=== PATIENT | female | born 1950 | race Caucasian/White ===

== ENCOUNTER 2023-08-31 11:47 | Inpatient (IN) | payer OTHER ==
[2023-08-31] VITALS (21 sets, daily range): BP systolic 92–133; BP diastolic 47–121; TEMP 98.7; O2SAT 94–100
[~2023-08-31] VITALS: Ht 142.2 cm; Wt 95.3 kg
[2023-08-31] MEDS ORDERED: DILTIAZEM HCL 25 MG IV ONE (12:24)
[2023-08-31 12:27] LABS: BASOPHILS % (AUTO) 0.3 % (0.0-2.0); EOSINOPHILS % (AUTO) 0.1 % (0.0-6.0); HEMATOCRIT 34 % (33-45); HEMOGLOBIN 10.5 g/dL (11.5-14.8); LYMPHOCYTES # (AUTO) 0.6 K/uL (0.8-4.8); LYMPHOCYTES % (AUTO) 4.6 % (20.0-44.0); MEAN CORPUSCULAR HEMOGLOBIN 25 PG (26.0-33.0); MEAN CORPUSCULAR HGB CONC 31 g/dl (31.0-36.0); MEAN CORPUSCULAR VOLUME 80 fL (82-100); MONOCYTES # (AUTO) 0.3 K/uL (0.1-1.30); MONOCYTES % (AUTO) 2.1 % (2.0-12.0); NEUTROPHILS # (AUTO) 11.8 K/uL (1.8-8.9); NEUTROPHILS % (AUTO) 92.9 % (43.0-81.0); PLATELET COUNT (AUTO) 198 K/uL (150-450); RED BLOOD CELL COUNT(AUTO) 4.23 MIL/uL (4.0-5.2); RED CELL DISTRIBUTION WIDTH 30.1 % (11.5-15.0); WHITE BLOOD COUNT (AUTO) 12.7 K/uL (4.3-11.0)
[2023-08-31] MEDS: DILTIAZEM HCL 25 MG IV IVP ONE (12:35)
[2023-08-31] MEDS: IV NS 0.9% 500 ML BAG IV ONE (12:36)
[2023-08-31 12:41] LABS: INR 1.03 (0.91-1.10); PARTIAL THROMBOPLASTIN TIME 23.6 SEC (24.3-34.3); PROTHROMBIN TIME 10.9 SECS (9.2-11.1)
[2023-08-31 12:50] LABS: CALCIUM, SERUM 9.8 mg/dL (8.5-10.1); CARBON DIOXIDE 23 mmol/L (21-32); CHLORIDE 103 mmol/L (98-107); CREATININE 1.2 mg/dL (0.6-1.3); GLUCOSE 237 mg/dL (74-106); POTASSIUM 4.4 mmol/L (3.5-5.1); SODIUM SERUM 140 mmol/L (136-145); THYROID STIMULATING HORMONE 0.32 uIU/mL (0.358-3.74); UREA NITROGEN, BLOOD 22 mg/dL (7-18)
[2023-08-31] MEDS ORDERED: IV NS 0.9% 250 ML IV ONE (12:53)
[2023-08-31] MEDS ORDERED: IOHEXOL-300 100 ML VIAL IV ONE (12:53)
[2023-08-31 13:09] LABS: ALANINE AMINOTRANSFERASE 22 U/L (12-78); ALBUMIN 3.3 g/dL (3.4-5.0); ALKALINE PHOSPHATASE 100 U/L (46-116); ASPARTATE AMINOTRANSFERASE 16 U/L (15-37); BILIRUBIN,DIRECT 0.2 mg/dL (0.0-0.2); BILIRUBIN,TOTAL 0.8 mg/dL (0.2-1.0); TOTAL PROTEIN, SERUM 7.7 g/dL (6.4-8.2)
[2023-08-31] MEDS ORDERED: METF-442 PO (13:32)
[2023-08-31] MEDS: IV NS 0.9% 1,000 ML BAG IV ONE ×2 (13:32→14:00)
[2023-08-31] MEDS: VANCOMYCIN 1 GM in IV D5W 250 ML IV ONE (13:33)
[2023-08-31] MEDS: DILTIAZEM HCL IV 125 MG in IV D5W 100 ML IV ONE (13:33)
[2023-08-31] MEDS ORDERED: LISI-768 PO (13:33)
[2023-08-31] MEDS ORDERED: TURM500C9 PO (13:33)
[2023-08-31] MEDS ORDERED: CHOL400C8 PO (13:33)
[2023-08-31] MEDS ORDERED: PIOG15TA8 PO (13:33)
[2023-08-31] MEDS ORDERED: GLIP5TAB13 PO (13:33)
[2023-08-31] MEDS ORDERED: ACETAMINOPHEN 325 MG TABLET ONE (15:15)
[2023-08-31] MEDS: ACETAMINOPHEN 325 MG TABLET PO ONE (15:18)
[2023-08-31 15:38] LABS: APPEARANCE,URINE CLEAR (CLEAR); BILIRUBIN,URINE NEGATIVE (NEGATIVE); BLOOD, URINE TRACE-INTA Ery/uL (NEGATIVE); COLOR,URINE YELLOW (YELLOW); KETONES,URINE NEGATIVE (NEGATIVE); LEUKOCYTE ESTERASE ,URINE 2+ (NEGATIVE); NITRITE, URINE POSITIVE (NEGATIVE); PROTEIN,URINE NEGATIVE (NEGATIVE); UGLUCOSE NEGATIVE (NEGATIVE); UROBILINOGEN,URINE 0.2 EU/dL (0.2)
[2023-08-31 16:01] LABS: ADD URINE CULTURE YES; BACTERIA,URINE Few /HPF (None Seen); RBC,URINE 5 /HPF (0-2); SQUAMOUS EPITHELIAL CELL,UR Few /HPF (None Seen); WBC,URINE TOO NUMEROUS TO COUN /HPF (0-3)
[2023-08-31] MEDS: CEFEPIME 1 GM in IV D5W 50 ML IV ONE (16:53)
[2023-08-31] MEDS ORDERED: MAGNESIUM HYDROXIDE 30 ML UDC PO PRN (18:30)
[2023-08-31] MEDS ORDERED: MAG HYDROX/AL HYDROX/SIMETH 30 ML UDC PO PRN (18:30)
[2023-08-31] MEDS ORDERED: Z GUARD REMEDY 4 OZ OINT TP PRN (18:30)
[2023-08-31] MEDS ORDERED: ZOLPIDEM TARTRATE 5 MG TABLET PO PRN (18:30)
[2023-08-31] MEDS: DILTIAZEM HCL IV 125 MG in IV NS 0.9% 100 ML IV PRN (18:38)
[2023-08-31] MEDS ORDERED: DEXTROSE 50%-WATER 50 ML DISP.SYRIN IV PRN (19:00)
[2023-08-31] MEDS: IV 1/2NS 1000 ML 1,000 ML IV ONE (19:02)
[2023-08-31] MEDS: VANCOMYCIN 500 MG in IV D5W 100ml IV ONE (19:12)
[2023-08-31] MEDS: ENOXAPARIN SODIUM 100 MG/ML DISP.SYRIN SQ SCH (19:14)
[2023-08-31] MEDS ORDERED: ENOXAPARIN SODIUM 30 MG/0.3 ML DISP.SYRIN SQ SCH (21:00)
[2023-08-31] MEDS: BLOOD SUGAR DIAGNOSTIC 1 EACH STRIP VI SCH (21:27)
[2023-08-31] MEDS: *INSULIN REGULAR(HUMULIN R)HUM 100 UNIT/ML VIAL SQ PRN (21:29)
[2023-08-31] MEDS: ONDANSETRON HCL/PF 4 MG/2 ML VIAL IVP PRN (21:37)
[2023-09-01] VITALS (55 sets, daily range): BP systolic 86–120; BP diastolic 35–76; TEMP 98.3–101.2; O2SAT 94–100
[2023-09-01] MEDS: ACETAMINOPHEN 325 MG TABLET PO PRN (00:35)
[2023-09-01 04:21] LABS: BASOPHILS % (AUTO) 0.2 % (0.0-2.0); EOSINOPHILS % (AUTO) 0.1 % (0.0-6.0); HEMATOCRIT 29 % (33-45); LYMPHOCYTES # (AUTO) 1.2 K/uL (0.8-4.8); LYMPHOCYTES % (AUTO) 8.9 % (20.0-44.0); MEAN CORPUSCULAR HEMOGLOBIN 26 PG (26.0-33.0); MEAN CORPUSCULAR HGB CONC 32 g/dl (31.0-36.0); MEAN CORPUSCULAR VOLUME 81 fL (82-100); MONOCYTES # (AUTO) 0.9 K/uL (0.1-1.30); NEUTROPHILS # (AUTO) 10.9 K/uL (1.8-8.9); NEUTROPHILS % (AUTO) 83.8 % (43.0-81.0); PLATELET COUNT (AUTO) 156 K/uL (150-450); RED BLOOD CELL COUNT(AUTO) 3.53 MIL/uL (4.0-5.2); RED CELL DISTRIBUTION WIDTH 30.7 % (11.5-15.0)
[2023-09-01 04:43] LABS: CALCIUM, SERUM 8.6 mg/dL (8.5-10.1); CARBON DIOXIDE 24 mmol/L (21-32); CHLORIDE 106 mmol/L (98-107); CREATININE 0.9 mg/dL (0.6-1.3); GLUCOSE 189 mg/dL (74-106); MAGNESIUM 1.7 mg/dL (1.8-2.4); PHOSPHORUS 3.3 mg/dL (2.5-4.9); SODIUM SERUM 138 mmol/L (136-145); UREA NITROGEN, BLOOD 13 mg/dL (7-18)
[2023-09-01 04:56] LABS: CHOLESTEROL 126 mg/dL (<200); HDL CHOLESTEROL 57 mg/dL (40-60); LDL 57 mg/dL (0-99); TRIGLYCERIDES 91 mg/dL (30-150)
[2023-09-01] MEDS: PANTOPRAZOLE 40 MG TABLET.DR PO SCH (08:16)
[2023-09-01] MEDS: PIOGLITAZONE HCL 15 MG TABLET PO SCH (08:17)
[2023-09-01] MEDS: INSULIN REGULAR, HUMAN 100 UNIT/ML 3 ML VIAL SQ PRN (08:18)
[2023-09-01] MEDS: MAGNESIUM OXIDE 400 MG TABLET PO ONE (08:44)
[2023-09-01] MEDS: LISINOPRIL (5MG) 5 MG TABLET PO SCH (08:44)
[2023-09-01] MEDS: DILTIAZEM HCL 30 MG TABLET PO SCH (12:00)
[2023-09-01] MEDS: CEFEPIME 1 GM in IV D5W 50 ML IV SCH (15:31)
[2023-09-01] MEDS: VANCOMYCIN HCL 1.25 GM in IV D5W 250 ML IV SCH (19:50)
[2023-09-01] MEDS: METOPROLOL TARTRATE 25 MG TABLET PO SCH (20:21)
[2023-09-01 20:24] LABS: LACTIC ACID 2.7 mmol/L (0.4-2.0)
[2023-09-02] VITALS (8 sets, daily range): BP systolic 97–125; BP diastolic 53–71; TEMP 97.8–98.4; O2SAT 92–100
[2023-09-02 06:40] LABS: BASOPHILS % (AUTO) 0.2 % (0.0-2.0); EOSINOPHILS # (AUTO) 0.1 K/uL (0.0-0.7); EOSINOPHILS % (AUTO) 1.6 % (0.0-6.0); HEMATOCRIT 29 % (33-45); HEMOGLOBIN 9.3 g/dL (11.5-14.8); LYMPHOCYTES # (AUTO) 1.5 K/uL (0.8-4.8); MEAN CORPUSCULAR HEMOGLOBIN 26 PG (26.0-33.0); MEAN CORPUSCULAR HGB CONC 33 g/dl (31.0-36.0); MEAN CORPUSCULAR VOLUME 80 fL (82-100); MONOCYTES # (AUTO) 0.7 K/uL (0.1-1.30); MONOCYTES % (AUTO) 9.9 % (2.0-12.0); NEUTROPHILS # (AUTO) 5.1 K/uL (1.8-8.9); NEUTROPHILS % (AUTO) 68.3 % (43.0-81.0); PLATELET COUNT (AUTO) 138 K/uL (150-450); RED BLOOD CELL COUNT(AUTO) 3.54 MIL/uL (4.0-5.2); RED CELL DISTRIBUTION WIDTH 29.8 % (11.5-15.0); WHITE BLOOD COUNT (AUTO) 7.5 K/uL (4.3-11.0)
[2023-09-02 06:43] LABS: CALCIUM, SERUM 8.5 mg/dL (8.5-10.1); CREATININE 0.8 mg/dL (0.6-1.3); MAGNESIUM 1.7 mg/dL (1.8-2.4); POTASSIUM 4.1 mmol/L (3.5-5.1)
[2023-09-02] MEDS: MAGNESIUM OXIDE 400 MG TABLET PO ONE (08:45)
[2023-09-02] MEDS: CEFEPIME 2 GM in IV D5W 100 ML IV SCH (11:41)
[2023-09-02] MEDS: RIVAROXABAN 15 MG TABLET PO SCH (17:04)
[2023-09-02] MEDS ORDERED: VANCOMYCIN 1.5 GM in IV D5W 500 ML IV SCH (20:00)
[2023-09-03] VITALS (8 sets, daily range): BP systolic 106–116; BP diastolic 62–85; TEMP 97.7–98.6; O2SAT 96–98
[2023-09-03 07:44] LABS: BASOPHILS % (AUTO) 0.3 % (0.0-2.0); EOSINOPHILS # (AUTO) 0.1 K/uL (0.0-0.7); EOSINOPHILS % (AUTO) 1.6 % (0.0-6.0); HEMATOCRIT 30 % (33-45); HEMOGLOBIN 9.6 g/dL (11.5-14.8); LYMPHOCYTES # (AUTO) 1.8 K/uL (0.8-4.8); LYMPHOCYTES % (AUTO) 22.5 % (20.0-44.0); MEAN CORPUSCULAR HEMOGLOBIN 26 PG (26.0-33.0); MEAN CORPUSCULAR HGB CONC 32 g/dl (31.0-36.0); MEAN CORPUSCULAR VOLUME 80 fL (82-100); MONOCYTES # (AUTO) 0.6 K/uL (0.1-1.30); MONOCYTES % (AUTO) 7.3 % (2.0-12.0); NEUTROPHILS # (AUTO) 5.5 K/uL (1.8-8.9); NEUTROPHILS % (AUTO) 68.3 % (43.0-81.0); PLATELET COUNT (AUTO) 158 K/uL (150-450); RED BLOOD CELL COUNT(AUTO) 3.73 MIL/uL (4.0-5.2); RED CELL DISTRIBUTION WIDTH 29.1 % (11.5-15.0)
[2023-09-03 07:59] LABS: MAGNESIUM 1.8 mg/dL (1.8-2.4); PHOSPHORUS 3.3 mg/dL (2.5-4.9)
[2023-09-03] MEDS ORDERED: CEFTRIAXONE 1GM BAG (ER ONLY) 1 GM/50 ML PIGGYBACK IV ONE (18:00)
[2023-09-03] MEDS: CEFTRIAXONE 2 G in IV D5W 100 ML IV ONE (18:13)
[2023-09-04] VITALS: BP 106/46; TEMP 98.2; O2SAT 99
[2023-09-04 04:00] VITALS: BP 121/79; TEMP 98; O2SAT 95
[2023-09-04 07:16] LABS: BASOPHILS % (AUTO) 0.5 % (0.0-2.0); EOSINOPHILS # (AUTO) 0.1 K/uL (0.0-0.7); HEMATOCRIT 30 % (33-45); HEMOGLOBIN 9.8 g/dL (11.5-14.8); LYMPHOCYTES # (AUTO) 2.1 K/uL (0.8-4.8); LYMPHOCYTES % (AUTO) 32.1 % (20.0-44.0); MEAN CORPUSCULAR HEMOGLOBIN 26 PG (26.0-33.0); MEAN CORPUSCULAR HGB CONC 33 g/dl (31.0-36.0); MEAN CORPUSCULAR VOLUME 80 fL (82-100); MONOCYTES # (AUTO) 0.5 K/uL (0.1-1.30); MONOCYTES % (AUTO) 7.7 % (2.0-12.0); NEUTROPHILS # (AUTO) 3.8 K/uL (1.8-8.9); NEUTROPHILS % (AUTO) 57.7 % (43.0-81.0); PLATELET COUNT (AUTO) 178 K/uL (150-450); RED BLOOD CELL COUNT(AUTO) 3.76 MIL/uL (4.0-5.2); RED CELL DISTRIBUTION WIDTH 29.2 % (11.5-15.0); WHITE BLOOD COUNT (AUTO) 6.6 K/uL (4.3-11.0)
[2023-09-04 07:49] LABS: CALCIUM, SERUM 9.8 mg/dL (8.5-10.1); CREATININE 0.8 mg/dL (0.6-1.3); MAGNESIUM 1.8 mg/dL (1.8-2.4); PHOSPHORUS 4.6 mg/dL (2.5-4.9); POTASSIUM 4.2 mmol/L (3.5-5.1)
[2023-09-04 08:00] VITALS: BP 107/62; TEMP 97.9; O2SAT 95
[2023-09-04 11:34] VITALS: BP 107/62; TEMP 97.9; O2SAT 95
[2023-09-04 12:00] VITALS: BP 121/73; TEMP 98.2; O2SAT 96
[2023-09-04] MEDS ORDERED: METO25TA20 PO (14:26)
[2023-09-04] MEDS ORDERED: RIVA15TA PO (14:26)
[2023-09-04] MEDS ORDERED: CEFD300C3 PO (14:30)
[2023-09-04 16:00] VITALS: BP 122/65; TEMP 97.7; O2SAT 96
[2023-09-04] MEDS ORDERED: CEFTRIAXONE 2 G in IV D5W 100 ML IV SCH (18:00)
== END 2023-09-04 16:45 | disposition home or self-care (01) | DRG 720 ==
LOC: ER 11:50 → TELE1 14:57 → ICU 15:36 → TELE1 09-01 21:45 → MEDSG1 09-04 11:59
PROVIDERS: ADMIT Student in an Organized Health Care Education/Training Program; ATTEND Student in an Organized Health Care Education/Training Program
DX: A41.51 Sepsis due to Escherichia coli [E. coli] (principal); C25.9 Malignant neoplasm of pancreas, unspecified; I48.92 Unspecified atrial flutter; D25.9 Leiomyoma of uterus, unspecified; D64.9 Anemia, unspecified; E86.0 Dehydration; E11.9 Type 2 diabetes mellitus without complications; I48.91 Unspecified atrial fibrillation; E66.01 Morbid (severe) obesity due to excess calories; N39.0 Urinary tract infection, site not specified; Z68.42 Body mass index [BMI] 45.0-49.9, adult; Z20.822 Contact with and (suspected) exposure to COVID-19; I10 Essential (primary) hypertension; Z88.0 Allergy status to penicillin; Z88.5 Allergy status to narcotic agent; Z79.84 Long term (current) use of oral hypoglycemic drugs; Z79.899 Other long term (current) drug therapy; R79.89 Other specified abnormal findings of blood chemistry; N20.0 Calculus of kidney
CPT/HCPCS: 36415; 71045-TC; 80048-TC; 80061-TC; 80076-TC; 81001; 82962-TC; 83605-TC; 83690-TC; 83735-TC; 83880; 84100-TC; 84439-TC; 84443-TC; 84484-TC; 85025-TC; 85730-TC; 87040-TC; 87081-TC; 87086-TC; 87186-TC; 93307-TC; 94799-TC; 97110-TC; 97116-TC; 97530-TC; A4223; G0378; J0692; J0696; J1650; J1815; J2405; J3370; J3371; J3490; J7030; J7040; J7050; J7060; Q9967